=== PATIENT | female | born 1965 | race Caucasian/White ===

== ENCOUNTER 2019-12-04 10:33 | Emergency (ER) | payer MEDICAID ==
[~2019-12-04] VITALS: Ht 165.1 cm; Wt 74.5 kg
[2019-12-04 10:48] VITALS: BP 162/65
== END 2019-12-04 13:10 | disposition home or self-care (01) ==
LOC: ER 10:33
DX: G89.29 Other chronic pain (principal); R10.9 Unspecified abdominal pain; R19.7 Diarrhea, unspecified; F15.90 Other stimulant use, unspecified, uncomplicated; J44.9 Chronic obstructive pulmonary disease, unspecified; K21.9 Gastro-esophageal reflux disease without esophagitis; F41.9 Anxiety disorder, unspecified; Z90.49 Acquired absence of other specified parts of digestive tract; Z98.890 Other specified postprocedural states; Z56.0 Unemployment, unspecified; Z88.6 Allergy status to analgesic agent
CPT/HCPCS: 99281

== ENCOUNTER 2023-06-13 23:44 | Emergency (ER) | payer MEDICAID ==
[~2023-06-13] VITALS: Ht 165.1 cm; Wt 81.4 kg
[2023-06-13 23:50] VITALS: BP 98/71; PULSE 107; RESP 16; TEMP 98.4; O2SAT 98
[2023-06-14] MEDS ORDERED: LORazepam 1 MG tablet PO ONE (02:10)
[2023-06-14] MEDS ORDERED: nicotine 21mg patch - 24 hr TD ONE (02:10)
[2023-06-14 02:16] LABS: ALANINE AMINOTRANSFERASE 22 U/L (12-78); ALBUMIN 3.8 G/DL (3.4-5.0); ALBUMIN/GLOBULIN RATIO 1.2 (1.1-1.5); ALKALINE PHOSPHATASE 94 IU/L (46-116); ANION GAP 11 (8-16); ASPARTATE AMINO TRANSFERASE 21 U/L (10-37); BILIRUBIN,TOTAL 0.2 MG/DL (0.1-1.0); BLOOD UREA NITROGEN 17 MG/DL (7-18); BUN/CREATININE RATIO 19.3 (10.0-20.0); CALCIUM 8.8 MG/DL (8.5-10.1); CHLORIDE 104 MMOL/L (99-107); CREATININE 0.88 MG/DL (0.40-0.90); GLUCOSE 116 MG/DL (70-104); POTASSIUM 4.3 MMOL/L (3.5-5.1); SODIUM 139 MMOL/L (135-145); TOTAL PROTEIN 7.1 G/DL (6.4-8.2); eCRCL 63 ML/MIN; eGFR 66 ML/MIN
[2023-06-14 02:20] LABS: ETHANOL < 10 MG/DL (<10)
[2023-06-14 02:37] LABS: BASOPHILS # (AUTO) 0.1 X10'3 (0-0.2); BASOPHILS % (AUTO) 0.5 % (0-1); EOSINOPHILS # (AUTO) 0.4 X10'3 (0-0.9); EOSINOPHILS % (AUTO) 3.6 % (0-6); HEMATOCRIT 38.9 % (35.0-45.0); HEMOGLOBIN 13.1 g/dl (12.0-16.0); LYMPHOCYTES # (AUTO) 3.1 X10'3 (1.1-4.8); LYMPHOCYTES % (AUTO) 30.9 % (21-51); MEAN CORPUSCULAR HEMOGLOBIN 30.1 PG (27.0-31.0); MEAN CORPUSCULAR HGB CONC 33.7 g/dL (33.0-36.5); MEAN CORPUSCULAR VOLUME 89.5 FL (78-98); MEAN PLATELET VOLUME 8.4 FL (7.4-10.4); MONOCYTES % (AUTO) 10.3 % (2-12); NEUTROPHILS # (AUTO) 5.4 X10'3 (1.8-7.7); NEUTROPHILS % (AUTO) 54.7 % (42-75); PLATELET COUNT 273 X10'3 (140-440); RED BLOOD COUNT 4.34 X10'6 (4.20-5.60); RED CELL DISTRIBUTION WIDTH 13.5 % (11.5-14.5); WHITE BLOOD COUNT 9.9 X10'3 (4.5-11.0)
== END 2023-06-14 02:38 | disposition left against medical advice (07) ==
LOC: ER 23:45
DX: R45.1 Restlessness and agitation (principal); Z20.822 Contact with and (suspected) exposure to COVID-19; F31.9 Bipolar disorder, unspecified; F15.90 Other stimulant use, unspecified, uncomplicated; J44.9 Chronic obstructive pulmonary disease, unspecified; Z72.89 Other problems related to lifestyle; Z56.0 Unemployment, unspecified; Z88.8 Allergy status to other drugs, medicaments and biological substances
CPT/HCPCS: 36415; 80053; 80320; 85025; 87811; 99283

== ENCOUNTER 2023-06-14 02:57 | Emergency (ER) | payer MEDICAID ==
[~2023-06-14] VITALS: Ht 165.1 cm; Wt 81.4 kg
[2023-06-14 03:39] VITALS: BP 98/71; PULSE 107; RESP 18; TEMP 98.4; O2SAT 98
== END 2023-06-14 05:23 | disposition left against medical advice (07) ==
LOC: ER 02:57
DX: F41.0 Panic disorder [episodic paroxysmal anxiety] (principal); F41.9 Anxiety disorder, unspecified; Z53.21 Procedure and treatment not carried out due to patient leaving prior to being seen by health care provider
CPT/HCPCS: 99281

== ENCOUNTER 2023-10-07 07:22 | Emergency (ER) | payer MEDICAID ==
[~2023-10-07] VITALS: Ht 165.1 cm; Wt 79.6 kg
[2023-10-07 07:37] VITALS: BP 111/82; PULSE 101; TEMP 99.8; O2SAT 96
[2023-10-07 08:01] VITALS: RESP 14
[2023-10-07 09:01] LABS: BASOPHILS % (AUTO) 0.8 % (0-1); EOSINOPHILS # (AUTO) 0.1 X10'3 (0-0.9); EOSINOPHILS % (AUTO) 1.5 % (0-6); HEMATOCRIT 38.7 % (35.0-45.0); HEMOGLOBIN 12.7 g/dl (12.0-16.0); LYMPHOCYTES # (AUTO) 1.1 X10'3 (1.1-4.8); LYMPHOCYTES % (AUTO) 25.9 % (21-51); MEAN CORPUSCULAR HEMOGLOBIN 30.1 PG (27.0-31.0); MEAN CORPUSCULAR VOLUME 91.5 FL (78-98); MEAN PLATELET VOLUME 8.3 FL (7.4-10.4); MONOCYTES # (AUTO) 0.6 X10'3 (0-0.9); MONOCYTES % (AUTO) 13.3 % (2-12); NEUTROPHILS # (AUTO) 2.5 X10'3 (1.8-7.7); NEUTROPHILS % (AUTO) 58.5 % (42-75); PLATELET COUNT 210 X10'3 (140-440); RED BLOOD COUNT 4.23 X10'6 (4.20-5.60); RED CELL DISTRIBUTION WIDTH 13.1 % (11.5-14.5); WHITE BLOOD COUNT 4.3 X10'3 (4.5-11.0)
[2023-10-07 09:15] LABS: ALANINE AMINOTRANSFERASE 19 U/L (12-78); ALBUMIN 3.9 G/DL (3.4-5.0); ALBUMIN/GLOBULIN RATIO 1.1 (1.1-1.5); ALKALINE PHOSPHATASE 75 IU/L (46-116); ANION GAP 4 (8-16); ASPARTATE AMINO TRANSFERASE 16 U/L (10-37); BILIRUBIN,TOTAL 0.2 MG/DL (0.1-1.0); BLOOD UREA NITROGEN 11 MG/DL (7-18); BUN/CREATININE RATIO 12.8 (10.0-20.0); CALCIUM 8.4 MG/DL (8.5-10.1); CHLORIDE 105 MMOL/L (99-107); CREATININE 0.86 MG/DL (0.40-0.90); GLUCOSE 98 MG/DL (70-104); POTASSIUM 4.1 MMOL/L (3.5-5.1); SODIUM 141 MMOL/L (135-145); TOTAL CARBON DIOXIDE 31.8 MMOL/L (24-32); TOTAL PROTEIN 7.3 G/DL (6.4-8.2); eCRCL 65 ML/MIN; eGFR 68 ML/MIN
[2023-10-07] MEDS ORDERED: NIRM1TAB9 PO (10:50)
== END 2023-10-07 11:15 | disposition home or self-care (01) ==
LOC: ER 07:23
DX: U07.1 COVID-19 (principal); J44.9 Chronic obstructive pulmonary disease, unspecified; F41.9 Anxiety disorder, unspecified; F15.90 Other stimulant use, unspecified, uncomplicated; Z88.8 Allergy status to other drugs, medicaments and biological substances; Z79.899 Other long term (current) drug therapy; Z98.890 Other specified postprocedural states
CPT/HCPCS: 36415; 71045; 80053; 85025; 87502; 87503; 87811; 99284